=== PATIENT | male | born 1985 | race Caucasian/White ===

== ENCOUNTER 2023-05-16 09:30 | Outpatient (REF) | payer BC, SELFPAY ==
[2023-05-16 18:16] LABS: Calculated LDL 118 mg/dL (<100); Cholesterol 202 mg/dL (<200); Glucose 100 mg/dL (74-106); HDL Cholesterol 39 mg/dL (40-60); Triglyceride 228 mg/dL (<150)
== END 2023-05-16 09:31 | disposition home or self-care (01) ==
LOC: NCHCN 09:30
PROVIDERS: PCP Internal Medicine; Visit Provider Nurse Practitioner Family
DX: Z00.00 Encounter for general adult medical examination without abnormal findings (principal); Z13.220 Encounter for screening for lipoid disorders; Z13.1 Encounter for screening for diabetes mellitus
CPT/HCPCS: 80061; 82947

== ENCOUNTER 2024-02-20 08:42 | Outpatient (REF) | payer BC, SELFPAY ==
[2024-02-20 17:58] LABS: Calculated LDL 99 mg/dL (<100); Cholesterol 162 mg/dL (<200); Glucose 103 mg/dL (74-106); HDL Cholesterol 37 mg/dL (40-60); Triglyceride 134 mg/dL (<150)
== END 2024-02-20 08:43 | disposition home or self-care (01) ==
LOC: NCHCN 08:42
PROVIDERS: PCP Nurse Practitioner Family; Visit Provider Nurse Practitioner Family
DX: Z00.00 Encounter for general adult medical examination without abnormal findings (principal)
CPT/HCPCS: 80061; 82947; 84154